=== PATIENT | female | born 1960 | race American Indian/Alaskan Native ===

== ENCOUNTER 2017-11-21 09:52 | Outpatient (CLI) | payer MEDICARE ==
--- NOTE | 2017-11-21 10:53 | XRay Report ---
XRAY BILATERAL SHOULDER THREE VIEWS EACH: 11/21/17 09:52:00 CLINICAL: Bilateral shoulder pain. FINDINGS: Right: Mild osteopenia. Moderate acromioclavicular joint arthritis and moderate glenohumeral joint arthritis. A small inferior humeral osteophyte. Glenoid irregularity. Normal soft tissues. Left: Mild osteopenia. Moderately severe acromioclavicular joint arthritis and glenohumeral joint arthritis. A large inferior humeral osteophyte and irregularity of the glenoid. No fracture or dislocation. Normal soft tissues. IMPRESSION: Bilateral glenohumeral joint and acromioclavicular jointarthritis, worse on the left than the right.
== END 2017-11-21 09:53 | disposition home or self-care (01) ==
LOC: SPVIMAG 09:52
PROVIDERS: ATTEND Orthopaedic Surgery Sports Medicine
DX: M19.011 Primary osteoarthritis, right shoulder (principal); M19.012 Primary osteoarthritis, left shoulder; M85.811 Other specified disorders of bone density and structure, right shoulder; M85.812 Other specified disorders of bone density and structure, left shoulder

== ENCOUNTER 2018-06-26 09:20 | Day surgery (SDC) | payer MEDICARE ==
[2018-06-26] MEDS ORDERED: NACL 0.9% 1000 ML 1,000 ML IV SCH (10:00)
[2018-06-26] MEDS ORDERED: VERSED ONE (10:26)
[2018-06-26] MEDS ORDERED: DIPRIVAN 10 MG/ML IV ONE (10:26)
--- NOTE | 2018-06-26 10:48 | Anesthesia Day of Surgery ---
Anesthesia Day of Surgery - Day of Surgery Patient Examined: Yes Patient H&P Reviewed: Yes Patient is NPO: Yes
--- NOTE | 2018-06-26 10:48 | Anesthesia Consultation ---
Anesthesia Consult and Med Hx Date of service: 06/26/18 - Airway Anesthetic Teeth Evaluation: Edentulous ROM Head & Neck: Inadequate (limited without pain) Mental/Hyoid Distance: Adequate Mallampati Class: Class I Intubation Access Assessment: Good - Pulmonary Exam CTA: Yes - Cardiac Exam Cardiac Exam: RRR - Pre-Operative Health Status ASA Pre-Surgery Classification: ASA2 Proposed Anesthetic Plan: MAC - Pulmonary Hx Smoking: Yes SOB: Yes (inhaler use prn for environmental allergies) Hx Sleep Apnea: Yes (resolved) - Cardiovascular System Hx Hypertension: Yes - Central Nervous System CVA: Yes (2015, left side weakness) - Gastrointestinal Hx Gastroesophageal Reflux Disease: Yes - Endocrine Hx Non-Insulin Dependent Diabetes: Yes - Other Systems Hx Obesity: Yes
[2018-06-26 11:36] VITALS: BP 142/85
--- NOTE | 2018-06-26 13:19 | Operative Report ---
PREOPERATIVE DIAGNOSES: 1. Chronic epigastric abdominal pain. 2. Status post laparoscopic gastric bypass by Dr. Leger in 2012. 3. Dyspepsia. 4. Dysphagia. PROCEDURE: Esophagogastroenteroscopy. SURGEON: Huber Varner MD ANESTHESIA: MAC. DESCRIPTION OF PROCEDURE: The patient was placed on the operating table in dorsal supine position. Following satisfactory induction of MAC anesthesia, the patient was then given anesthesia and the endoscope was then placed into the posterior oropharynx and down into the upper esophagus, mid esophagus, and lower esophagus. Mainly it was noted that once we were inside the patient's pouch she had previous gastric bypass. The pouch was approximately 90 mL in volume with an anastomosis at 30 mm. There was obvious active enterogastric reflux seen. There was a moderate amount of gastritis with probable old healed ulcers. The patient is indeed a smoker, but her pain is probably coming from the enterogastric reflux and the excess amount of pouch, which was probably producing acid. The procedure was then terminated by desufflating the pouch and the scope was removed. The patient tolerated the procedure well, was sent to recovery room in satisfactory condition. OB notes will be a suggestion that she undergoes a revision procedure because of size of her pouch with a pouch resection as well as biliopancreatic limb lengthening and she will have to stop smoking at least 1-2 months before proceeding with any surgery. JOB# [id number] MADY/WESTON
== END 2018-06-26 09:21 | disposition home or self-care (01) ==
LOC: GIO 09:20
PROVIDERS: ATTEND Specialist
DX: K21.9 Gastro-esophageal reflux disease without esophagitis (principal); K30 Functional dyspepsia; E11.9 Type 2 diabetes mellitus without complications; I10 Essential (primary) hypertension; F17.210 Nicotine dependence, cigarettes, uncomplicated; E66.9 Obesity, unspecified; Z68.31 Body mass index [BMI] 31.0-31.9, adult; Z86.73 Personal history of transient ischemic attack (TIA), and cerebral infarction without residual deficits; Z90.710 Acquired absence of both cervix and uterus; Z98.51 Tubal ligation status; Z98.890 Other specified postprocedural states
CPT/HCPCS: 43235; 82962; J2250; J2704; J7030

== ENCOUNTER 2018-12-25 05:47 | Inpatient (IN) | payer MEDICARE ==
--- NOTE | 2018-12-24 14:42 | Anesthesia Consultation ---
Anesthesia Consult and Med Hx Date of service: 12/24/18 - Airway Anesthetic Teeth Evaluation: Edentulous ROM Head & Neck: Inadequate (mild restricted extension) Mental/Hyoid Distance: Adequate Mallampati Class: Class II Intubation Access Assessment: Possibly Difficult - Pulmonary Exam CTA: Yes - Cardiac Exam Cardiac Exam: RRR (grade 3/6 systolic murmur) - Pre-Operative Health Status ASA Pre-Surgery Classification: ASA3 Proposed Anesthetic Plan: General - Pulmonary Hx Smoking: Yes (40pk yr hx) COPD: Yes (albuterol prn) Home Oxygen Therapy: No Hx Sleep Apnea: Yes (resolved since weight loss) - Cardiovascular System Hx Hypertension: Yes Hx Heart Attack/AMI: No Hx Percutaneous Transluminal Coronary Angioplasty (PTCA): No Hx Cardia Arrhythmia: No - Central Nervous System CVA: Yes (2015, left side weakness) - Gastrointestinal Hx Gastroesophageal Reflux Disease: Yes (has nausea but denies reflux of gastric contents when supine) - Endocrine Hx Renal Disease: No Hx Liver Disease: No Hx Non-Insulin Dependent Diabetes: Yes Hx Thyroid Disease: No - Hematic Hx Anemia: No - Other Systems Hx Alcohol Use: Yes (OCCA) Hx Obesity: Yes (normal BMI now s/p gastric bypass) - Additional Comments Anesthesia Medical History Comments: No hx anesthetic complications. Normal TTE, stress test, and carotid dopplers. EKG NSR with PVCs. Instructed to take propanolol and antirefluc medications DOS.
[~2018-12-25 05:47] MED LIST: LACTATED RINGERS 1,000 ML IV SCH
[2018-12-25] MEDS ORDERED: PROVENTIL IH NR (06:00)
[2018-12-25] MEDS ORDERED: ANCEF/STERILE WATER 2 GM/20 ML 2 GM/20 ML SYRINGE IV NR (06:00)
[2018-12-25] MEDS ORDERED: TRANSDERM-SCOP TD NR (06:00)
[2018-12-25] MEDS ORDERED: LOVENOX SUB-Q NR (06:00)
[2018-12-25] MEDS ORDERED: FLAGYL 500 MG/100 ML 500 MG/100 ML BAG IV NR (06:00)
[2018-12-25] MEDS ORDERED: TRANSDERM-SCOP TD SCH (06:00)
[2018-12-25] MEDS ORDERED: LACTATED RINGERS 1,000 ML ONE (06:50)
[2018-12-25] MEDS ORDERED: ZEMURON IV ONE (07:20)
[2018-12-25] MEDS ORDERED: SUBLIMAZE ONE (07:20)
[2018-12-25] MEDS ORDERED: XYLOCAINE MPF 2% ONE (07:20)
[2018-12-25] MEDS ORDERED: DIPRIVAN 10 MG/ML IV ONE (07:22)
[2018-12-25] MEDS ORDERED: NORCO PO PRN (07:26)
[2018-12-25] MEDS ORDERED: MORPHINE IV PRN (07:26)
[2018-12-25] MEDS ORDERED: DILAUDID IV PRN (07:26)
[2018-12-25] MEDS ORDERED: ZOFRAN IV PRN (07:26)
[2018-12-25] MEDS ORDERED: REGLAN IV PRN (07:26)
[2018-12-25] MEDS ORDERED: MYLICON PO PRN (07:26)
[2018-12-25] MEDS ORDERED: SUBLIMAZE IV PRN (07:44)
--- NOTE | 2018-12-25 07:44 | Anesthesia Day of Surgery ---
Anesthesia Day of Surgery - Day of Surgery Patient Examined: Yes Patient H&P Reviewed: Yes Patient is NPO: Yes
[2018-12-25] MEDS ORDERED: MARCAINE-EPI 0.5%-1:200,000 INFILTRATI ONE (08:26)
[2018-12-25] MEDS ORDERED: XYLOCAINE 1% 20 mL INFILTRATI ONE (08:27)
[2018-12-25] MEDS ORDERED: NACL 0.9% IR ONE ×2 (08:27→09:09)
[2018-12-25] MEDS ORDERED: DILAUDID ONE ×2 (08:42→09:42)
[2018-12-25] MEDS ORDERED: ZOFRAN ONE (09:46)
[2018-12-25] MEDS ORDERED: BLOXIVERZ ONE (09:46)
[2018-12-25] MEDS ORDERED: ROBINUL ONE (09:46)
[2018-12-25] MEDS ORDERED: NORMODYNE IV ONE (09:46)
[2018-12-25] MEDS ORDERED: NORMODYNE IV PRN (09:51)
[2018-12-25] MEDS ORDERED: APRESOLINE IV PRN (09:51)
[2018-12-25] MEDS: TORADOL IV SCH ×3 (10:00→20:13)
--- NOTE | 2018-12-25 11:15 | Post Anesthesia Evaluation ---
- Post Anesthesia Evaluation Patient Participated: Yes Airway Patent: Yes Stable Respiratory Function: Yes Nausea/Vomiting: No Temp > 96.8F: Yes Pain Manageable: Yes Adequeate Hydration: Yes Anesthesia Complications: No Other Comments: BP returned to preop baseline.
--- NOTE | 2018-12-25 14:40 | Operative Report ---
PREOPERATIVE DIAGNOSES: 1. Abdominal pain, epigastric. 2. Dyspepsia. 3. Status post gastric bypass. 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 PROCEDURE: Laparoscopic gastrectomy, small bowel resection and hiatal hernia repair. SURGEON: Huber Varner MD BUILDING MAINTENANCE ENGINEER: Malik Adair. ANESTHESIA: General. INDICATIONS FOR PROCEDURE: This patient has been seen for some time following gastric bypass surgery. The patient comes in with chronic complaints of epigastric abdominal pain with nausea and vomiting and some discomfort. She had an EGD done that showed that she had a hiatal hernia; however, her EGD showed that she had an enormous gastric pouch indicating that she has some residual parietal cells left that obviously secrete the acid directly into an unprotected small bowel area. We therefore felt that the patient needed to have a gastrectomy as well as hiatal hernia repair and to see if there is anything else that needs to be done at this time. As noted above, the procedure of a candy cane syndrome is once the gastric bypass is performed. There was a small amount of the Jyoti limb that hangs over that allows the food to get trapped into this efferent area and then once it becomes distended, it then refluxes back up into the pouch and then goes down into the patient's small bowel efferently. This has been described as a candy cane syndrome and resecting this portion of the candy cane has been shown to alleviate this condition. DESCRIPTION OF PROCEDURE: The patient was placed on the operating table in dorsal supine position and following satisfactory induction of general anesthesia. The abdomen was prepped in the usual fashion and draped sterilely. After adequate timeout and everybody agreed and the skin incision was made in the umbilicus and a Veress needle was placed with insufflation of CO2. After adequate insufflation of CO2 was accomplished inside the abdominal cavity, a 10 mm trocar was then placed for inspection of the intra-abdominal contents. We then placed several of the trocars for access to the operative site. We did some adhesiolysis the patient's gastric pouch from other residual stomach ____ liver. After dissecting the gastric pouch away from the residual stomach, there was noted the pouch was quite enlarged and we also noticed that the patient had a very long approximately 12 cm worth of residual small bowel as the candy cane. We therefore dissected all around the pouch and around the crura and noticed also, the patient had a hiatal hernia. We then proceeded with surgery by freeing up the gastric pouch and then placing a scope inside the gastric pouch and into the small bowel and then using the scope as a guide, we transected across the excess amount of stomach. The staple line was then sewn over with a running suture of V-Loc PDS. We then took the LigaSure and took the mesentery to the excess portion of the small bowel down and then took a wide load stapler and stapled across this excess small bowel as well. Following this, the hiatal hernia was repaired, but with usages of 0 Surgidac and this hiatal hernia was quite large, so it took several U sutures in order to close the hiatal hernia defect. The patient tolerated the procedure well. We then proceeded to close by desufflating the abdominal cavity and approximating the fascial defect at the umbilicus using interrupted simple sutures of #1 PDS. The skin was closed using interrupted subdermal sutures of 4-0 Monocryl. Steri-Strips were applied to the wound. The patient tolerated the procedure well and was returned to recovery room in satisfactory condition. JOB# [id number] MADY/WESTON
[2018-12-25] MEDS: LACTATED RINGERS 1,000 ML IV SCH (20:17)
[2018-12-25] MEDS: APRESOLINE IV PRN (21:51)
[2018-12-26] MEDS: LACTATED RINGERS 1,000 ML IV SCH (03:02)
[2018-12-26] MEDS: TORADOL IV SCH ×2 (03:02→08:25)
[2018-12-26] MEDS: APRESOLINE IV PRN (03:17)
[2018-12-26] MEDS ORDERED: LOVENOX SUB-Q SCH (08:00)
[2018-12-26 11:22] LABS: Bacteria,Urine 1+ /HPF (Negative); Bilirubin,Urine NEG (Negative); Blood,Urine NEG (Negative); Color,Urine Straw (Yellow); Protein,Urine <15 mg/dL mg/dL (Negative); Urobilinogen,Urine < 2.0 mg/dL (<2.0)
[2018-12-26 12:48] VITALS: BP 140/96
--- NOTE | 2018-12-26 13:26 | Discharge Summary ---
Providers - Providers Date of Admission: 12/25/18 05:47 Date of discharge: 12/26/18 Attending physician: RIVERA DIAZ Primary care physician: MARINE MARIN Hospitalization Condition: Good Procedures: Lap GJ Revision Disposition: DC-01 TO HOME OR SELFCARE Core Measure Documentation - Palliative Care Palliative Care/ Comfort Measures: Not Applicable - Core Measures Any of the following diagnoses?: none Exam - Constitutional Vitals: Temp Pulse Resp BP Pulse Ox 98.2 F 100 H 18 140/96 100 12/26/18 11:56 12/26/18 11:56 12/26/18 11:56 12/26/18 11:56 12/26/18 11:56 General appearance: Present: no acute distress - EENT Eyes: Present: PERRL, EOM intact ENT: hearing intact, clear oral mucosa, dentition normal - Neck Neck: Present: supple, normal ROM - Respiratory Respiratory effort: normal Respiratory: bilateral: CTA - Cardiovascular Rhythm: regular - Extremities Extremities: no ischemia, pulses intact, No edema, normal temperature, Full ROM Peripheral Pulses: within normal limits - Abdominal General gastrointestinal: Present: soft, non-tender Female genitourinary: Present: normal - Rectal Rectal Exam: deferred - Integumentary Integumentary: Present: clear, warm, dry - Musculoskeletal Musculoskeletal: strength equal bilaterally - Psychiatric Psychiatric: appropriate mood/affect Plan Weight Bearing Status: Full Weight Bearing Diet: other Wound: keep clean and dry Follow up with: MARINE MARIN MD [Primary Care Provider] - 7 Days RIVERA DIAZ MD [Staff Physician] - 14 Days
== END 2018-12-26 14:30 | disposition home or self-care (01) | DRG 327 ==
LOC: 3A 05:47 → 3B 10:21
PROVIDERS: ADMIT Specialist; ATTEND Specialist
PROC: 0DB64ZZ Excision of Stomach, Percutaneous Endoscopic Approach (ICD-10-PCS; principal; 2018-12-25)
PROC: 0BQT4ZZ Repair Diaphragm, Percutaneous Endoscopic Approach (ICD-10-PCS; 2018-12-25)
PROC: 0DB84ZZ Excision of Small Intestine, Percutaneous Endoscopic Approach (ICD-10-PCS; 2018-12-25)
DX: K95.89 Other complications of other bariatric procedure (principal); I69.354 Hemiplegia and hemiparesis following cerebral infarction affecting left non-dominant side; Y83.2 Surgical operation with anastomosis, bypass or graft as the cause of abnormal reaction of the patient, or of later complication, without mention of misadventure at the time of the procedure; K21.9 Gastro-esophageal reflux disease without esophagitis; J44.9 Chronic obstructive pulmonary disease, unspecified; F17.200 Nicotine dependence, unspecified, uncomplicated; E11.9 Type 2 diabetes mellitus without complications; K44.9 Diaphragmatic hernia without obstruction or gangrene; K28.9 Gastrojejunal ulcer, unspecified as acute or chronic, without hemorrhage or perforation; I10 Essential (primary) hypertension; Y92.098 Other place in other non-institutional residence as the place of occurrence of the external cause; Z98.51 Tubal ligation status; Z79.84 Long term (current) use of oral hypoglycemic drugs
CPT/HCPCS: 81001; 82962; 88307; 94760; 99406; G0378; A4217; J0360; J0690; J1170; J1650; J1885; J2405; J2704; J2710; J3010; J7120